=== PATIENT | female | born 1965 | race Caucasian/White ===

== ENCOUNTER → 2023-04-24 | Outpatient (CLI) | payer BC ==
--- NOTE | 2023-04-24 14:34 | Diagnostic Imaging Report ---
HISTORY: Pain in the right hip. TECHNIQUE: Two views of the right hip. COMPARISON: None. FINDINGS: No acute fracture or dislocation is seen in the right hip. Alignment appears normal. The joint space is preserved. There is mild degenerative change in the right sacroiliac joint. IMPRESSION: 1. No acute osseous abnormality is seen in the right hip. Dictated by: Dictated on workstation # [id number]
== END ==
LOC: ORTHO 09:31
PROVIDERS: ATTEND Orthopaedic Surgery
DX: M25.551 Pain in right hip (principal)
CPT/HCPCS: 73502; 99203

== ENCOUNTER → 2023-05-08 | Outpatient (CLI) | payer BC | LOC: ORTHO 08:58 | PROVIDERS: ATTEND Orthopaedic Surgery | DX: S76.011D Strain of muscle, fascia and tendon of right hip, subsequent encounter (principal); X58.XXXD Exposure to other specified factors, subsequent encounter | CPT/HCPCS: 99213 ==